=== PATIENT | female | born 1975 | race African-American/Black ===

== ENCOUNTER 2020-05-22 13:35 | Emergency (ER) | payer OTHER ==
[~2020-05-22] VITALS: Ht 149.9 cm; Wt 90.7 kg
[2020-05-22] MEDS ORDERED: SODIUM CHLORIDE 0.9% 1000ML 1,000 ML IV STA (13:58)
[2020-05-22] MEDS ORDERED: FAMOTIDINE 20 MG/2 ML VIAL IV ONE ×2 (14:00→14:43)
[2020-05-22] MEDS ORDERED: ONDANSETRON HCL INJ 2MG/ML 2ML 2 MG/ML VIAL IV ONE (14:00)
[2020-05-22] MEDS ORDERED: SODIUM CHLORIDE 0.9% 1000ML 1,000 ML ONE (14:42)
[2020-05-22] MEDS ORDERED: ONDANSETRON HCL INJ 2MG/ML 2ML 2 MG/ML VIAL ONE (14:42)
--- NOTE | 2020-05-22 15:00 | NUR ---
pt states she feels better since removing her mask and putting on one of our surgerical mask
--- NOTE | 2020-05-22 15:36 | Diagnostic Imaging Report ---
EXAMINATION: CXR 1 VEW - HOPD INDICATION: Shortness of breath COMPARISON: None FINDINGS: LINES/TUBES:None LUNGS:The lung volumes are low. Bilateral right greater than left hazy airspace opacities. PLEURA:No pleural effusion or pneumothorax. MEDIASTINUM:The cardiomediastinal silhouette appears normal in size and shape. BONES/SOFT TISSUES:No acute osseous injury. ABDOMEN:No free air under the diaphragm. IMPRESSION: Bilateral right greater than left hazy airspace opacities compatible with pneumonia in the proper clinical setting. Signed by: Di Stewart MD on 05/22/2020 3:33 PM
[2020-05-22] MEDS ORDERED: FAMOTIDINE20 MG PO (16:08)
[2020-05-22] MEDS ORDERED: DEXAMETHASONE4 MG PO (16:08)
[2020-05-22] MEDS ORDERED: AZITHROMYCIN250 MG PO (16:08)
[2020-05-22] MEDS ORDERED: THERAFLU FLU &1 EAC1 PO (16:08)
[2020-05-22] MEDS ORDERED: ZOFRAN4 MG SL (16:08)
--- NOTE | 2020-05-22 16:09 | Emergency Department Note ---
History of Present Illnes History of Present Illness Chief Complaint: Abdominal Complaints History of Present Illness This is a 44 year old female pt states she tested positive for covid on 05/16/20 and today has diarrhea and not eating feeling week. pt states diarrhea x 2 ,pt placed in isolation . pt denies SOB, sat 96 -98 percent RA Historian: Patient Arrival Mode: Car Onset (how long ago): day(s) Radiation: Reports abdomen Severity: mild Onset quality: gradual Progression: unchanged Chronicity: new Context: Reports recent illness Relieving factors: none Exacerbating factors: none Associated symptoms: Reports cough, Reports fever/chills, Reports loss of appetite, Reports malaise Treatments prior to arrival: none Past Medical/Family History Physician Review I have reviewed the patient's past medical and family history. Any updates have been documented here. Past Medical History Recent Fever: Yes Clinical Suspicion of Infectio: No New/Unexplained Change in Ment: No Past Medical History: None Past Surgical History: None Social History Smoking Cessation: Never Smoker Counseling Performed: No Alcohol Use: None Any Illegal Drug Use: No TB Exposure/Symptoms: No Physically hurt or threatened: No Family History Family history of heart diseas: No Other Last Tetanus: unk Any Pre-Existing Lines (PICC,: No Is patient up to date on immun: Yes Last Flu: none Last Pneumovax: none Review of Systems Review of Systems Constitutional: Reports as per HPI, Reports chills, Reports fever, Reports malaise EENTM: Reports no symptoms, Reports nose congestion Cardiovascular: Reports no symptoms Respiratory: Reports chest congestion, Reports cough Gastrointestinal: Reports abdominal pain, Reports constipation Genitourinary: Reports no symptoms Musculoskeletal: Reports no symptoms Integumentary: Reports no symptoms Neurological: Reports no symptoms Psychological: Reports no symptoms Endocrine: Reports no symptoms Hematological/Lymphatic: Reports no symptoms Physical Exam Related Data Triage Vital Signs Vital Signs Date Time Temp Pulse Resp B/P (MAP) Pulse Ox O2 Delivery O2 Flow Rate FiO2 05/22/20 13:59 99.9 100 18 130/70 93 Physical Exam CONSTITUTIONAL Constitutional: Present well-developed, Present well-nourished, Present obese, Present other (mild distress) HENT HENT: Present normocephalic, Present atraumatic, Present oropharynx clear/moist, Present mucosae dry HENT L/R: Present left ext ear normal, Present right ext ear normal EYES Eyes: Reports PERRL, Reports conjunctivae normal NECK Neck: Present ROM normal PULMONARY Pulmonary: Present effort normal, Present rales, Present other (diminished breath sound on the right) CARDIOVASCULAR Cardiovascular: Present regular rhythm, Present heart sounds normal, Present capillary refill normal, Present normal rate GASTROINTESTINAL Abdominal: Present soft (obese), Present nontender, Present bowel sounds normal GENITOURINARY Genitourinary: Present exam deferred SKIN Skin: Present warm, Present dry MUSCULOSKELETAL Musculoskeletal: Present ROM normal NEUROLOGICAL Neurological: Present alert, Present oriented x 3, Present no gross motor or sensory deficits PSYCHOLOGICAL Psychological: Present mood/affect normal, Present judgement normal Results Laboratory Laboratory comments CBC nl. liver enzymes slightly elevated Imaging Impressions COVID 19 lung disease Diagnostics Tests Diagnostic test(s) reviewed: Yes Assessment & Plan Medical Decision Making MDM COVID 19 Reassessment Reassessment taking the whole can of Gaurang, discussed with her about transfer to hospital sat 92% RA talking then up to 96 % at rest. Assessment & Plan Final Impression: (1) COVID-19 virus infection (2) Viral pneumonia (3) Dehydration Depart Disposition: TRANS TO OTHER [facility] Last Vital Signs Date Time Temp Pulse Resp B/P (MAP) Pulse Ox O2 Delivery O2 Flow Rate FiO2 05/22/20 15:38 89 97 05/22/20 13:59 99.9 18 Home Meds Active Scripts Azithromycin (Z-RENE) 250 Mg Tablet, 250 MG PO UD, #1 UDPKT Z-Pack Prov:NABIL CASTILLO MD 05/22/20 Famotidine (FAMOTIDINE) 20 Mg Tab, 20 MG PO BID, #30 TAB Prov:NABIL CASTILLO MD 05/22/20 Ondansetron Hcl* (ZOFRAN*) 4 Mg Tablet, 4 MG SL Q6H PRN for NAUSEA, #14 MG 0 Refills Prov:NABIL CASTILLO MD 05/22/20 Phenylephrine/Acetaminophn/Pnm (THERAFLU FLU & SORE THROAT) 1 Each Packet, 1 PACKET PO Q6H PRN for cough and cold, #12 Prov:NABIL CASTILLO MD 05/22/20 Dexamethasone (DEXAMETHASONE) 4 Mg Tablet, 4 MG PO DAILY for 1 Day, #10 TAB Prov:NABIL CASTILLO MD 05/22/20 Medications in the ED Ondansetron HCl 8 mg ONCE ONCE IV Last administered on 05/22/20at 15:02; Admin Dose 8 MG; Start 05/22/20 at 14:00; Stop 05/22/20 at 14:01; Status UNV Famotidine 20 mg ONCE ONCE IV Last administered on 05/22/20at 15:02; Admin Dose 20 MG; Start 05/22/20 at 14:00; Stop 05/22/20 at 14:01; Status UNV Sodium Chloride 1,000 ml @ 0 mls/hr Q0M STAT IV Last administered on 05/22/20at 15:02; Admin Dose 999 MLS/HR; Start 05/22/20 at 13:58; Stop 05/22/20 at 14:01; Status DC Sodium Chloride 1,000 ml @ ud STK-MED ONCE .ROUTE ; Start 05/22/20 at 14:42; Stop 05/22/20 at 14:38; Status DC Physician Attestation Provider Attestation would benefit from oxygen and observation. NABIL CASTILLO MD May 22, 2020 16:09
[2020-05-22] MEDS ORDERED: DEXAMETHASONE SOD PHOS 10 MG/1 ML VIAL IV ONE (16:15)
[2020-05-22] MEDS ORDERED: DEXAMETHASONE SOD PHOS 10 MG/1 ML VIAL ONE (16:32)
--- NOTE | 2020-05-22 16:45 | NUR ---
pt completed 12 oz can of galorade.
--- NOTE | 2020-05-22 17:09 | NUR ---
per recieving a facility a bed will be ready at 1800.
[2020-05-22 18:29] VITALS: BP 121/68
== END 2020-05-22 18:35 | disposition other institution (70) ==
LOC: FSED 13:35
DX: U07.1 COVID-19 (principal); J12.89 Other viral pneumonia; E86.0 Dehydration
CPT/HCPCS: 71045; 80053; 81003; 85025; 96374; 96375; 96376; 99284; J1100; J2405; J7030